=== PATIENT | male | born 1985 | race Caucasian/White ===

== ENCOUNTER 2016-12-12 08:16 | Emergency (ER) | payer MEDICAID ==
[~2016-12-12] VITALS: Ht 182.9 cm; Wt 65.8 kg
[2016-12-12] MEDS ORDERED: OMEPRAZOLE20 MG PO (08:29)
[2016-12-12] MEDS ORDERED: NEURONTIN 300M300 MG PO (08:29)
[2016-12-12] MEDS ORDERED: TRAMADOL 50MG T50 M1 PO (08:30)
--- NOTE | 2016-12-12 08:39 | Emergency Room Report ---
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 N Clinical Suspician of Infection? N Mental Status: 1 - Regular (Normal Baseline) Sepsis Risk:Low Sepsis Risk Have you (or family members/close friends) recently traveled outside the [facility]? N If Yes, where/when: Have you had exposure to infectious disease within the past month? TB? Other? Specify: Comment The patient is visiting here from [facility], [place]. He complains of an exacerbation of chronic RIGHT groin pain and vomiting. He says his problems began a couple of years ago with inguinal hernia repair. He says that after his hernia repair he developed chronic RIGHT inguinal pain. A year ago he had surgery to cut 3 nerves in his groin. He says initially that area was numb, but then the pain returned. He says that 2 months ago they removed the mesh from his groin, but this did not help. He says he is supposed to be seeing a nurse specialist in [place] on the of this month. He says his has a friend who is in labor here at the hospital and he is visiting. He says that 3 days ago his pain began getting worse and he is having some vomiting. He is on tramadol and Zofran. He says that he slept all night in his van in the parking lot and finally decided to come in this morning. He lists an ALLERGY to Toradol. States his surgeon is Dr. Beasley, from [facility]. ALLERGIES Coded Allergies: Sulfa (Sulfonamide Antibiotics) (Mild, 12/12/16) ketorolac (From TORADOL) (Mild, 12/12/16) Home Medications Reported Medications Omeprazole (Omeprazole 20MG) 20 MG PO DAILY Gabapentin (Neurontin 300MG) 300 MG PO TID TRAMADOL HCL (Tramadol) 50 MG PO BID History Medical History General CAD? No Angina: No CA: No Hypertension? No Hyperlipidemia? No CHF? No DVT? No PE? No COPD? No Asthma? No Anemia? No GERD? Yes Gastric ulcers? No GI Bleed? No Hernia? Yes Thyroid Problems? No Hypothyroidism? No CVA? No Seizures? No Diabetes? No End Stage Renal Disease? No UTI? No Stones? Yes BPH? No GB Disease: No Nephritic Syndrome? No Asplenia? No Hepatitis? No Sickle Cell Disease? No Arthritis? Yes Migraines? No Cataracts? No Glaucoma? No MRSA? No HIV? No TB? No Anxiety? Yes Depression? No Cancer? No More? No Immunization Hx Ped.Immunizations UTD Yes DT/Tetanus 1-4 Years Ago Surgical Hx Previous Surgery?Y INGUINAL MESH PLACED TRIPLE NEURECTOMY,INGUINA INGUINAL MESH REMOVED Cholecystectomy Social History Smoking Hx Smoker: Current Every Day Smoker Tobacco: Yes Type Cigarettes Packs/day < 1 Pack Are you/the child exposed to second-hand smoke: No Alcohol Alcohol: No Review of Systems All Other Systems Reviewed and Negative Constitutional denies fever Gastrointestinal abdominal pain, nausea Genitourinary denies: dysuria, frequency. Physical Exam Vital Signs Vital Signs Date Time Temp Pulse Resp B/P Pulse O2 O2 Flow FiO2 Ox Delivery Rate 12/12 0954 98.3 81 18 145/74 98 12/12 0950 81 18 145/74 98 12/12 0922 81 18 139/76 98 12/12 0856 81 18 141/77 98 12/12 0823 98.3 90 18 143/80 98 General Appearance no apparent distress Eye Exam - bilateral eye normal exam, bilateral eye PERRL, bilateral eye EOMI Ear, Nose, Throat hearing grossly normal, normal ENT inspection Neck normal inspection, non-tender, supple, full range of motion Respiratory Status Yes: trachea midline, chest symmetrical, non tender chest. No: respiratory distress. Lung Sounds bilateral: normal breath sounds, lungs clear. Cardiovascular normal exam, regular rate/rhythm, no peripheral edema, no gallop, no JVD, no murmur, no rub, normal peripheral pulses Peripheral Pulses Pulses normal Yes Gastrointestinal normal bowel sounds, soft, no organomegaly, no guarding, no rebound, tenderness (RIGHT suprapubic) Extremities non-tender, normal range of motion, normal inspection Male Genitalia no hernia, uncircumcised, well healed inguinal scars., tenderness along the RIGHT inguinal area. No mass, edema, or hernia. Testicles normal in position. No scrotal edema. 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 Yes Vinnie was queried for this patient? Yes Comment [id number] 22 rxs. last rxs gabapentin on 11/27/16. 12 percocet on 11/24/16 (Dr. Natarajan, EM physician). Confirms that he is on tramadol chronically Results/Orders Laboratory Tests 12/12/16 0900: Opiates Screen NEGATIVE, Urine Methadone Screen NEGATIVE, Barbiturates NEGATIVE, Phencyclidine Screen NEGATIVE, Amphetamines Screen NEGATIVE, Benzodiazepines Screen NEGATIVE, Cocaine Screen NEGATIVE, Marijuana (THC) Screen POSITIVE H, Urine Color YELLOW, Urine Appearance CLEAR, Urine pH 8.5, Ur Specific [place] 1.015, Urine Protein NEGATIVE, Urine Ketones NEGATIVE, Urine Blood NEGATIVE, Urine Nitrate NEGATIVE, Urine Bilirubin NEGATIVE, Urine Urobilinogen 0.2, Ur Leukocyte Esterase NEGATIVE, Urine WBC 10-20, Ur Squamous Epith Cells OCC, Urine Bacteria 4+, Urine Mucus 1+, Urine Glucose NEGATIVE 12/12/16 0845: Sodium 139, Potassium 4.3, Chloride 102, Carbon Dioxide 31, BUN 8, Creatinine 0.9, Estimated Creat Clear 113, Estimated GFR (MDRD) 100, Glucose 109 H, Calcium 9.7, Total Bilirubin 0.6, AST 26, ALT 36, Alkaline Phosphatase 94, Total Protein 8.4 H, Albumin 4.5, Globulin 3.9 H, Albumin/Globulin Ratio 1.2, Lipase 123, WBC 9.5, RBC 5.23, Hgb 15.9, Hct 48.2, MCV 92.1, RDW 13.5, Plt Count 276, MPV 7.1 L, Gran % 69.2, Gran # 6.6, Lymphocytes % 24.6, Monocytes % 4.6, Eosinophils % 1.1, Basophils % 0.5, Lymphocytes # 2.3, Monocytes # 0.4, Eosinophils # 0.1, Basophils # 0.1, PUBS MCHC 33.0, MCH 30.4 Current Medication Orders Sig/Joni Start time Last Medication Dose Route Stop Time Status Admin Tramadol HCl 0 .STK-MED ONE 12/12 0951 DC .ROUTE Tramadol HCl 100 MG ONCE ONE 12/12 0845 DC PO 12/12 0946 Ondansetron HCl 0 .STK-MED ONE 12/13 907 DC .ROUTE Sodium Chloride 1,000 ML .STK-MED ONE 12/13 907 DC IV Ondansetron HCl 4 MG ONCE ONE 12/12 0900 DC 12/12 IV 12/12 0901 0910 Sodium Chloride 1,000 ML .Q1H1M 12/12 0900 DCD 12/12 IV 12/12 1000 0910 Sodium Chloride 10 ML PRN PRN 12/12 0830 DCD IV 12/13 0830 Orders Procedure Date/time Status DRUG ABUSE SCREEN (TRIAGE) 12/12 912 Complete CULTURE, URINE 12/12 899 Active IV SALINE LOCK 12/12 829 Active URINALYSIS/COMPLETE 12/12 829 Complete LIPASE 12/12 829 Complete CBC WITH AUTO DIFF 12/12 829 Complete CHEM 12 PROFILE 12/12 829 Complete Progress - 9:45 AM: Patient states nausea is improved. Last took tramadol last evening at 11. States he is not driving. Dose ordered. Departure Departure Disposition DC Home or Self Care(routine) Clinical Impression Primary Impression: Chronic pain of right inguinal region Secondary Impressions: Vomiting alone Qualifiers: Vomiting type: unspecified Vomiting Intractability: non-intractable Qualified Code: R11.11 - Vomiting without nausea Condition STABLE Additional Instructions Keep doctor's appointments as previously scheduled. Continue current treatment with tramadol and Zofran. ED Critical Care Critical Care No at [id number]
[2016-12-12 08:52] LABS: HEMOGLOBIN 15.9 g/dL (14.1-18.0); LYMPH # 2.3 K/mm3 (0.7-4.5); LYMPH % 24.6 % (10-50)
[2016-12-12 09:10] LABS: URINE BILIRUBIN - DIPSTICK NEGATIVE (NEG); URINE BLOOD NEGATIVE (NEG)
[2016-12-12 09:19] LABS: URINE SQUAMOUS CELLS OCC #/hpf (OCC)
[2016-12-12 09:29] LABS: AMPHETAMINES/METAMPHETAMINES NEGATIVE ng/mL (<1000)
[2016-12-12 09:54] VITALS: BP 145/74
== END 2016-12-12 09:55 | disposition home or self-care (01) ==
LOC: ER 08:16
PROVIDERS: Emergency Medicine
DX: R10.31 Right lower quadrant pain (principal); R11.10 Vomiting, unspecified; G89.29 Other chronic pain; F17.210 Nicotine dependence, cigarettes, uncomplicated; K21.9 Gastro-esophageal reflux disease without esophagitis; Z79.891 Long term (current) use of opiate analgesic; Z79.899 Other long term (current) drug therapy
CPT/HCPCS: J2405